=== PATIENT | female | born 1990 | race Caucasian/White ===

== ENCOUNTER 2020-06-13 12:15 | Emergency (ER) | payer OTHER ==
[~2020-06-13] VITALS: Ht 160 cm; Wt 98.9 kg
[2020-06-13 13:22] LABS: BASO % 0.4 % (0.0-1.0); EOS # 0.3 10*3/uL (0.0-0.4); EOS % 3.5 % (1.0-4.0); HEMATOCRIT 30.8 % (37.0-47.0); LYMPH # 1.4 10*3/uL (1.3-4.4); LYMPH % 17.9 % (27.0-41.0); MEAN CELL VOLUME 86.3 fl (81.0-99.0); MEAN CORPUSCULAR HGB 28.3 pg (27.0-31.0); MEAN CORPUSCULAR HGB CONC 32.8 g/dl (33.0-37.0); MEAN PLATELET VOLUME 9.4 fl (9.6-12.3); MONO # 0.4 10*3/uL (0.1-1.0); MONO % 5.4 % (3.0-9.0); NEUT # 5.6 10*3/uL (2.3-7.9); NEUT % 72.4 % (47.0-73.0); PLATELET COUNT AUTOMATED 261 10*3/uL (130-400); RED BLOOD COUNT 3.57 10*6/uL (4.10-5.10); RED CELL DISTRI WIDTH 14.8 % (0-14.5); WHITE BLOOD COUNT 7.8 10*3/uL (4.8-10.8)
[2020-06-13 13:37] LABS: ALBUMIN 2.5 gm/dl (3.1-4.5); ALKALINE PHOSPHATASE 70 U/L (45-117); BUN 7 mg/dl (7-24); CHLORIDE 108 mmol/L (98-107); CREATININE 0.57 mg/dL (0.55-1.02); LIPASE 101 U/L (73-393); POTASSIUM 3.8 mmol/L (3.5-5.1); SGOT/AST 8 IU/L (3-35); SGPT/ALT 15 U/L (12-78); SODIUM 137 mmol/L (136-145)
[2020-06-13 13:43] LABS: BILIRUBIN Negative (Negative); BLOOD Negative (Negative); CLARITY Cloudy (Clear); COLOR Yellow (Yellow); GLUCOSE Negative (Negative); KETONE Negative (Negative); LEUKO ESTERASE 2+ (Negative); NITRITE Positive (Negative); PH 6.5 (4.5-8.0)
[2020-06-13 13:53] LABS: BACTERIA 2+
[2020-06-13] MEDS ORDERED: MACROBID100 M1 PO (15:03)
== END 2020-06-13 15:15 | disposition home or self-care (01) ==
LOC: ED 12:15
PROVIDERS: Emergency Medicine
DX: O23.42 Unspecified infection of urinary tract in pregnancy, second trimester (principal); Z91.041 Radiographic dye allergy status; Z3A.18 18 weeks gestation of pregnancy

== ENCOUNTER 2020-06-25 12:07 | Emergency (ER) | payer OTHER ==
[~2020-06-25] VITALS: Wt 98.9 kg
[~2020-06-25 12:07] MED LIST: MACROBID100 M1 PO
== END 2020-06-25 12:53 | disposition home or self-care (01) ==
LOC: ED 12:07
DX: O26.892 Other specified pregnancy related conditions, second trimester (principal); R10.9 Unspecified abdominal pain; Z91.041 Radiographic dye allergy status; Z79.899 Other long term (current) drug therapy; Z3A.20 20 weeks gestation of pregnancy